=== PATIENT | female | born 1990 | race Caucasian/White ===

== ENCOUNTER 2017-03-13 11:41 | Emergency (ER) | payer MEDICAID, OTHER ==
[~2017-03-13] VITALS: Ht 167.6 cm; Wt 64.9 kg
[~2017-03-13 11:41] MED LIST: CEPH-460 PO; PREN1MIS11 PO
--- NOTE | 2017-03-13 12:27 | PD ---
HPI Chief Complaint low back pain Date Seen: March 13, 2017 Time Seen: 12:14 Travel History International Travel<30 Days: No Contact w/Intl Traveler<30Days: No History of Present Illness HPI 26 y/o at 40/6 presents with lower back pain and cramps. Started yesterday , worsening. Not sure if they feel like contractions or not. Pain comes and goes. No vaginal bleeding, loss of fluids. Endorses movement. Otherwise, denies any other complaints. Denies any chest pain, SOB, leg pain/edema. No dysuria. No headache, changes in vision. No complications with this . Sees [facility]. Para: 1 : 2 History Past Medical History Narrative Medical RLS Obstetric History Obstetric History - at 40 weeks Past Surgical History Surgical History: No Previous Surgery Family History Family History: Negative Social History Alcohol Use: No Tobacco Use: No Substance Abuse: No Allergies-Medications (Allergen,Severity, Reaction): Coded Allergies: No Known Allergies (Unverified , 03/05/17) Home Meds Active Scripts Cephalexin (Keflex)500 Mg [id number] Mg PO Q12H #14 CAP Ref 0 Prov:Aishwarya Jamison CNM EVENT ORGANIZER 03/04/17 Reported Medications W/O Vit A W/ Fe Carbo Pack (Citranatal 90 Dha Pack)90-1 & 300 Mg Pack1 Ea PO DAILY #6 BLISTER Ref 0 30 day supply. 09/24/16 Review of Systems General / Constitutional: Weight Gain, No: Fever, Chills Eyes: No: Diploplia, Blurred Vision HENT: No: Headaches, Lightheadedness Cardiovascular: No: Irregular Rhythm, Chest Pain or Discomfort, Palpitations Respiratory: No: Cough, Short of Breath Gastrointestinal: No: Nausea, Vomiting, Diarrhea Genitourinary: Pelvic Pain, No: Urgency, Frequency, Dysuria, Vaginal Bleeding Musculoskeletal: No: Cramping, Edema Skin: No Rash, No Itching Neurologic: No: Weakness, Dizziness Psychiatric: No: Anxiety, Depression Endocrine: No: Heat Intolerance, Cold Intolerance Physical Exam Narrative GENERAL: Well-nourished, well-developed patient. SKIN: Warm and dry. HEAD: Normocephalic and atraumatic. EYES: No scleral icterus. No injection or drainage. ENT: No nasal drainage noted. Mucous membranes pink. Airway patent. NECK: Supple, trachea midline. No JVD. CARDIOVASCULAR: Regular rate and rhythm without murmurs, gallops, or rubs. RESPIRATORY: Breath sounds equal bilaterally. No accessory muscle use. ABDOMEN/GI: Abdomen soft, non-tender, bowel sounds present, no rebound, no guarding Gravid to 41 weeks size GENITOURINARY: External Genitalia: intact and normal in appearance Cervix: soft Dilatation: 2 Effacement: 40 Station: -3 Presentation: vertex Membranes: intact Uterine Contractions: occasional FHT's: Category: 1 Baseline: 130 Reactive: yes Variability: moderate after stimulation Decels: none EXTREMITIES: No cyanosis or edema. BACK: Nontender without obvious deformity. No CVA tenderness. NEUROLOGICAL: Awake and alert. Motor and sensory grossly within normal limits. Five out of 5 muscle strength in all muscle groups. Normal speech. Data Data Vital Signs Reviewed: Yes [facility] Medical Record Reviewed: Yes Interpretation(s) 26 y/o at 40/6 weeks presents with lower back pain. Cervical exam: 2/40/-3 Category 1 FHT Vitals stable In early stages, but not in active labor - Discharge home - Tylenol PRN for pain - F[facility]u with [facility] - Return to ED if worsening pain with vaginal bleeding, loss of fluids, or more frequent contractions every 5 minutes. Diagnosis Diagnosis: Primary Impression: Abdominal pain affecting , antepartum Additional Impression: 40 weeks gestation of Disposition: 01 DISCHARGE HOME Condition: Stable Patient Instructions: General Instructions, Early Labor Signs (ED) Emanuel Bah MD R1 March 13, 2017 12:27
[2017-03-13] MEDS ORDERED: VIST50CA PO (15:40)
[2017-05-01] MEDS ORDERED: CELE10TA PO (14:11)
[2017-05-01] MEDS ORDERED: LO LTAB PO (14:11)
== END 2017-03-13 12:42 | disposition home or self-care (01) ==
LOC: HOBED 11:41
DX: O26.893 Other specified pregnancy related conditions, third trimester (principal); R10.9 Unspecified abdominal pain; M54.5 Low back pain; Z3A.40 40 weeks gestation of pregnancy
CPT/HCPCS: 99284

== ENCOUNTER 2017-03-14 12:52 | Inpatient (IN) | payer MEDICAID ==
[2017-03-14] VITALS (36 sets, daily range): BP systolic 89–140; BP diastolic 59–97; PULSE 50–127; RESP 18; TEMP 98.4
[~2017-03-14 12:52] MED LIST changes: -CEPH-460 PO; +VIST50CA PO
--- NOTE | 2017-03-14 13:55 | PD ---
HPI Chief Complaint back pain; request for IOL at 41 weeks Date Seen: March 14, 2017 Travel History International Travel<30 Days: No Contact w/Intl Traveler<30Days: No Known Affected Area: No History of Present Illness HPI Ms. Malcolm is a 26 yo patient of [facility] at 41 weeks ([facility]ILMAN 2016) who presents with back pain and abdominal pain. Patient states that she was evaluated for these symptoms and that induction of labor was scheduled for Friday, 03/17, but that she subsequently talked with her OB provider and was told to return to OB ED for further evaluation and possible IOL. He states the cramping on her size occurs approximately every 10 minutes but sometimes more frequently. Patient states that her lower back pain is bilateral and constant. Patient does not report associated dysuria or fever. Patient reports normal movement. Patient reports vaginal spotting after urination. Patient states she had ultrasound performed yesterday; no concerns regarding well- being. Patient reports normal movement. No concern of loss of vaginal fluid. Patient reports benign history. 1st trimester US consistent with LMP. GBS+. Para: 1 : 2 History Past Medical History Medical History: Denies Significant Hx Obstetric History Obstetric History Full term vaginal delivery in 2011 Past Surgical History Surgical History: No Previous Surgery Family History Narrative Family History Mother with back pain Social History Narrative Social History Patient reports ~5 cigarettes daily; reports decreasing consumption since knowing she was Alcohol Use: No Tobacco Use: Yes Substance Abuse: No Allergies-Medications (Allergen,Severity, Reaction): Coded Allergies: No Known Allergies (Unverified , 03/13/17) Home Meds Active Scripts Hydroxyzine Pamoate (Vistaril)50 Mg [id number] Mg PO HS PRN (INSOMNIA) #4 CAP Ref 0 Prov:Aishwarya Jamison CNM DIAGRAM CLERK 03/13/17 Reported Medications W/O Vit A W/ Fe Carbo Pack (Citranatal 90 Dha Pack)90-1 & 300 Mg Pack1 Ea PO DAILY #6 BLISTER Ref 0 30 day supply. 09/24/16 Discontinued Scripts Cephalexin (Keflex)500 Mg [id number] Mg PO Q12H #14 CAP Ref 0 Prov:Aishwarya Jamison CNM DIAGRAM CLERK 03/04/17 Physical Exam BP 107/67 HR 90 Narrative GENERAL: Well-nourished, well-developed patient. SKIN: Warm and dry. HEAD: Normocephalic and atraumatic. EYES: No scleral icterus. No injection or drainage. ENT: No nasal drainage noted. Mucous membranes pink. Airway patent. NECK: Supple, trachea midline. No JVD. CARDIOVASCULAR: Regular rate and rhythm without murmurs, gallops, or rubs. RESPIRATORY: CTAB, normal rate ABDOMEN/GI: Abdomen soft, non-tender, bowel sounds present, no rebound, no guarding Gravid EXTREMITIES: No cyanosis or edema. NEUROLOGICAL: Awake and alert. Motor and sensory function grossly within normal limits. GENITOURINARY: External Genitalia: intact and normal in appearance Cervix: soft Dilatation: 2 Effacement: 50% Station: -3 Presentation: V Membranes: Intact Uterine Contractions: q2 minutes FHT's: Category: 1 Baseline: 130 Reactive: Y Variability: Mod Decels: None Data Data Vital Signs Reviewed: Yes MDM Medical Record Reviewed: Yes Narrative Course / MDM 26 yo patient of [facility] at 41 weeks ([facility]ILMAN 03/07/2017) -Cat 1 rhythm -Cervix 2/40-50%/-3; soft (Carrera score ~4) -Contractions q2-3min -GBS+ Plan: -Plan to admit for induction of labor -Will give Cytotec -Will obtain CBC, UA, Hold Clot -Will start IV F -Will start GBS PPX José Miguel Hill MD R2 March 14, 2017 13:55
[2017-03-14] MEDS ORDERED: LACTATED RINGER'S 1000 ML INJ 1,000 ML IV PRN ×2 (14:32→16:00)
[2017-03-14] MEDS ORDERED: LIDOCAINE HCL 1% 50 ML VIAL I-DERMAL PRN (14:45)
[2017-03-14] MEDS ORDERED: MISOPROSTOL 25 MCG SUPP VAGINAL PRN (14:45)
[2017-03-14] MEDS ORDERED: LIDOCAINE HCL 1% 50 ML VIAL INFIL PRN (14:45)
[2017-03-14] MEDS ORDERED: SODIUM CHLORID 0.9% 500 ML INJ 500 ML IV PRN (14:45)
[2017-03-14] MEDS ORDERED: CITRIC ACID-SODIUM CITRATE LIQ 30 ML UDC PO SCH (14:45)
[2017-03-14] MEDS ORDERED: MINERAL OIL 10 ML VIAL TOPICAL PRN (14:45)
[2017-03-14] MEDS ORDERED: SODIUM CHLOR 0.9% 1000 ML INJ 1,000 ML IV PRN (14:52)
[2017-03-14] MEDS ORDERED: OXYTOCIN 30 UNITS-500ML PREMIX 500 ML IV ONE (15:00)
[2017-03-14] MEDS ORDERED: LACTATED RINGER'S 1000 ML INJ 1,000 ML IV SCH ×2 (15:00→16:00)
[2017-03-14] MEDS ORDERED: MEASLES, MUMPS, RUBELLA VACCINE 0.5 ML VIAL SQ ONE (16:00)
[2017-03-14] MEDS ORDERED: PENICILLIN G POTASSIUM INJ 5,000,000 UNITS in SODIUM CHLORIDE 0.9% INJ 100 ML IV ONE ×2 (16:00→22:00)
[2017-03-14] MEDS ORDERED: DIPHTH/TETANUS/ACEL PERTUSSIS (BOOSTER) 0.5 ML VIAL/PFS IM ONE (16:00)
[2017-03-14 16:45] LABS: AUTOMATED NEUTROPHIL # 6.8 TH/MM3 (1.8-7.7); BASOPHIL % 0.2 % (0.0-2.0); EOSINOPHIL # 0.1 TH/MM3 (0-0.4); EOSINOPHIL % 0.7 % (0.0-4.0); HEMO FLAGS DIFF FINAL; LYMPH % 16.4 % (9.0-44.0); LYMPHOCYTE # 1.5 TH/MM3 (1.0-4.8); MEAN CELL VOLUME 93.7 FL (80.0-100.0); MEAN CORPUSCULAR HEMOGLOBIN 33.2 PG (27.0-34.0); MEAN CORPUSCULAR HGB CONC 35.4 % (32.0-36.0); MONO % 5.9 % (0.0-8.0); NEUT % 76.8 % (16.0-70.0); PLATELET COUNT 201 TH/MM3 (150-450); RED BLOOD COUNT 3.41 MIL/MM3 (4.00-5.30); RED CELL DISTRIBUTION WIDTH 12.9 % (11.6-17.2); WHITE BLOOD COUNT 8.9 TH/MM3 (4.0-11.0)
[2017-03-14 16:58] LABS: BLOOD, URINE MOD (NEG); COMMENT (UR) CULTURE INDICATED; CULTURE IF INDICATED CULTURE INDICATED; GLUCOSE,URINE NEG (NEG); KETONE, URINE NEG (NEG); MUCUS URINE FEW /lpf (OCC); NITRITE,URINE NEG (NEG); PH, URINE 6.5 (5.0-8.5); SQUAMOUS EPITHELIAL CELL URINE 27 /hpf (0-5); URINE COLOR YELLOW (YELLW/STRAW)
[2017-03-14] MEDS ORDERED: PENICILLIN G POTASSIUM INJ 2,500,000 UNITS in SODIUM CHLORIDE 0.9% INJ 100 ML IV SCH (20:00)
--- NOTE | 2017-03-14 20:28 | HHI.PR ---
LINE SERVER Note Note FHR 145, reactive, category 1 tracing, no decelerations Cervix /-2, arom - clear Will start pitocin Otilia Rodriguez MD March 14, 2017 20:27
[2017-03-14] MEDS ORDERED: OXYTOCIN 30 UNITS-500ML PREMIX 500 ML IV SCH (20:30)
[2017-03-14] MEDS ORDERED: fentaNYL 2MCG-BUPIV 0.125% INJ 100 ML ONE (20:57)
[2017-03-14] MEDS ORDERED: ePHEDrine/NS 25 MG/5 ML SYR ONE (21:03)
[2017-03-14] MEDS ORDERED: BUPIVACAINE HCL PF 0.25% 10 ML VIAL ONE (21:03)
[2017-03-14 21:49] LABS: AMPHETAMINE, URINE NEG (NEG); BARBITURATES, URINE NEG (NEG); COCAINE, URINE NEG (NEG)
[2017-03-14] MEDS ORDERED: diphenhydrAMINE HCL 50 MG CAP PO ONE (22:45)
[2017-03-14] MEDS ORDERED: ZOLPIDEM TARTRATE 5 MG TAB PO PRN (23:45)
[2017-03-14] MEDS ORDERED: oxyCODONE/ACETAMINOPHEN 5 MG/325 MG TAB PO PRN ×2 (23:45)
[2017-03-14] MEDS ORDERED: WITCH HAZEL 50%/GLYCERIN 12.5% 40 PAD JAR TOPICAL PRN (23:45)
[2017-03-14] MEDS ORDERED: SODIUM CHLORIDE 0.9% FLUSH 10 ML FLUSH IV FLUSH PRN (23:45)
[2017-03-14] MEDS ORDERED: ONDANSETRON ODT 4 MG TAB PO PRN (23:45)
[2017-03-14] MEDS ORDERED: ALUMINUM/MAGNESIUM/SIMETH 30 ML CUP PO PRN (23:45)
[2017-03-14] MEDS ORDERED: BENZOCAINE 20% TOPICAL SPRAY 60 ML CAN TOPICAL PRN (23:45)
[2017-03-15] VITALS (8 sets, daily range): BP systolic 102–126; BP diastolic 61–81; PULSE 60–76; RESP 16–18; TEMP 98–99.3
--- NOTE | 2017-03-15 | PD.OB.DELI ---
Delivery Date: March 14, 2017 Anesthesia: Epidural Episiotomy: None Vaginal Delivery: Normal Presentation: Occiput anterior Nuchal Cord: x1 (Loose) Delayed cord clamping (45 sec): Yes : Male One Minute : 8 Five Minute : 9 Placenta: Spontaneous delivery Laceration: Vaginal laceration (2 R periurethral small lacerations requiring no repair; hemostasis obtained with pressure) Additional Information Mrs. Malcolm is a G2 now P2 after at 41/0. Patient had epidural anesthesia placed prior to delivery without complications. went without complications as well. There was one loose nuchal cord that was manually reduced. born with APGARs of 8/9 at with spontaneous crying and response to stimulation. Placenta was delivered shortly after spontaneously. There were 2 small R sided periurethral lacerations that did not require repair. Hemostasis was obtained with mild pressure. Baby and mother comfortably resting in room without complaints. SDW: Dr. Rodriguez and Dr. Hill. (Jovan Jefferson MD R1) Collaborating MD Comments over intact perineum, directly supervised by me with spontaneous delivery of intact placenta. (Otilia Rodriguez MD) Jovan Jefferson MD R1 March 14, 2017 23:59 Otilia Rodriguez MD March 15, 2017 01:26
[2017-03-15] MEDS: IBUPROFEN 600 MG TAB PO PRN ×4 (01:25→20:41)
[2017-03-15] MEDS ORDERED: PENICILLIN G POTASSIUM INJ 2,500,000 UNITS in SODIUM CHLORIDE 0.9% INJ 100 ML IV SCH (02:00)
[2017-03-15] MEDS: ACETAMINOPHEN 325 MG TAB PO PRN ×4 (03:44→20:42)
[2017-03-15] MEDS ORDERED: LACTATED RINGER'S 1000 ML INJ 1,000 ML IV PRN (07:00)
[2017-03-15] MEDS ORDERED: LACTATED RINGER'S 1000 ML INJ 1,000 ML IV SCH (07:00)
--- NOTE | 2017-03-15 08:08 | HHI.OB ---
Subjective Post Day: 1 Remarks 26 yo who is PPD 1 ( 5/5 at 2334). Ms. Malcolm was afebrile with stable vital signs overnight. Patient reports that she is ambulating well. Patient does not have significant abdominal pain. Patient with mild dysuria. Patient bottle feeding. Patient passing gas normally. (José Miguel Hill MD R2) Objective Vitals/I&O Vital Signs Date Time Temp Pulse Resp B/P Pulse Ox O2 Delivery O2 Flow Rate FiO2 03/15/17 01:30 99.3 03/15/17 01:30 69 18 123/72 03/15/17 01:15 18 03/15/17 01:15 98.0 03/15/17 01:00 74 126/73 03/15/17 00:46 18 03/15/17 00:45 75 119/81 03/15/17 00:44 98.4 18 03/15/17 00:37 76 102/61 03/14/17 23:15 118/97 03/14/17 23:01 127 99/86 03/14/17 22:45 59 03/14/17 22:45 60 120/77 03/14/17 22:40 66 03/14/17 22:35 57 03/14/17 22:31 60 89/59 03/14/17 22:30 57 03/14/17 22:26 50 127/76 03/14/17 22:25 59 03/14/17 22:20 62 03/14/17 22:15 76 03/14/17 22:11 61 122/64 03/14/17 22:10 64 03/14/17 22:07 56 128/69 03/14/17 22:05 66 03/14/17 22:00 67 132/76 03/14/17 22:00 61 03/14/17 21:55 62 128/73 03/14/17 21:55 65 03/14/17 21:50 62 03/14/17 21:50 61 122/62 03/14/17 21:46 62 123/69 03/14/17 21:45 61 03/14/17 21:40 65 03/14/17 21:40 62 119/67 03/14/17 21:38 63 124/72 03/14/17 21:35 59 03/14/17 21:35 60 129/76 03/14/17 21:32 59 132/74 03/14/17 21:30 66 133/81 03/14/17 21:30 63 03/14/17 21:26 87 130/75 03/14/17 21:25 67 03/14/17 21:20 69 03/14/17 21:20 65 140/91 03/14/17 21:15 71 03/14/17 21:15 69 118/97 03/14/17 21:10 63 03/14/17 21:10 76 131/87 03/14/17 21:07 63 125/78 03/14/17 20:45 112 126/88 03/14/17 20:33 63 125/81 03/14/17 20:30 18 03/14/17 19:30 98.4 18 03/14/17 19:27 65 121/77 Objective Remarks GENERAL: Well-nourished, well-developed patient. CARDIOVASCULAR: Regular rate and rhythm without murmurs, gallops, or rubs. RESPIRATORY: Breath sounds equal bilaterally. No accessory muscle use. ABDOMEN/GI: Abdomen soft, non-tender. Fundus: Firm, non-tender at umbilicus. GENITOURINARY: Light to moderate bleeding. EXTREMITIES: No cyanosis or edema, non-tender, without signs of DVT. Medications and IVs Current Medications Medications (Trade) Dose Ordered Sig/Andres Route Start Time Stop Time Status Last Admin (Benadryl) 50 mg Q6H PO 03/15/17 05:00 (NS Flush) 2 ml BID IV FLUSH 03/15/17 09:00 (NS Flush) 2 ml UNSCH PRN IV FLUSH 03/14/17 23:45 (Tylenol) 650 mg Q4H PRN PO 03/14/17 23:45 03/15/17 03:44 (Motrin) 600 mg Q6H PRN PO 03/14/17 23:45 03/15/17 01:25 (Percocet 5-325 Mg) 1 tab Q4H PRN PO 03/14/17 23:45 (Percocet 5-325 Mg) 2 tab Q4H PRN PO 03/14/17 23:45 (Americaine 20% Top Spr) 1 spray Q4H PRN TOPICAL 03/14/17 23:45 (Tucks Pads) 1 applic QID PRN TOPICAL 03/14/17 23:45 (Shell-Colace) 2 tab Q12H PRN PO 03/14/17 23:45 (Ambien) 5 mg HS PRN PO 03/14/17 23:45 (Mag-Al Plus Susp Liq) 15 ml Q8H PRN PO 03/14/17 23:45 (Zofran Odt) 4 mg Q6H PRN PO 03/14/17 23:45 (Habitrol 7 Mg Patch.24 Hr) 1 patch DAILY T-DERMAL 03/15/17 09:00 Miscellaneous Information 1 DAILY T-DERMAL 03/15/17 09:00 (José Miguel Hill MD R2) Assessment/Plan Problem List: (1) care and examination Assessment and Plan 26 yo who is PPD 1 ( 5/ at 2334) -Continue routine care. -Monitor VS, vaginal bleeding -Percocet and Motrin PRN pain. -Encourage OOB -Encourage breast feeding -Continue stool softener -Will need a f/u appt. in 1 wk for incision check. UA on admission suggestive of possible UTI; will follow culture Discharge Planning -D/c in 1 more day. (José Miguel Hill MD R2) Collaborating MD Comments Care has been reviewed and I agree with management (Otilia Rodriguez MD) José Miguel Hill MD R2 March 15, 2017 08:08 Otilia Rodriguez MD March 15, 2017 09:20
[2017-03-15] MEDS: NICOTINE 7 MG/24 HR PATCH T-DERMAL SCH (08:10)
[2017-03-15] MEDS: REMOVE OLD PATCH T-DERMAL SCH (08:10)
[2017-03-15] MEDS: DOCUSATE SODIUM 50 MG/SENNA 8.6 MG TAB PO PRN ×2 (08:10→20:41)
[2017-03-15] MEDS: SODIUM CHLORIDE 0.9% FLUSH 10 ML FLUSH IV FLUSH SCH ×2 (08:10→21:00)
[2017-03-15] MEDS: diphenhydrAMINE HCL 50 MG CAP PO SCH ×3 (09:31→22:29)
[2017-03-16] MEDS: diphenhydrAMINE HCL 50 MG CAP PO SCH (04:02)
[2017-03-16] MEDS: IBUPROFEN 600 MG TAB PO PRN ×3 (04:06→15:46)
[2017-03-16] MEDS: ACETAMINOPHEN 325 MG TAB PO PRN ×3 (04:06→14:18)
--- NOTE | 2017-03-16 08:49 | HHI.OB ---
Subjective Post Day: 2 Remarks 26 yo who is PPD 2 ( 5/5 at 2334). Ms. Malcolm was afebrile with stable vital signs overnight. Patient does not report significant pain. Patient reports that she is ambulating well. No dysuria reported. No shortness of breath or leg swelling reported. Patient passing gas normally. Patient bottle feeding. Patient would like to be discharged today. Objective Vitals/I&O Vital Signs Date Time Temp Pulse Resp B/P Pulse Ox O2 Delivery O2 Flow Rate FiO2 03/15/17 08:00 98.1 60 16 106/72 Objective Remarks GENERAL: Well-nourished, well-developed patient. CARDIOVASCULAR: Regular rate and rhythm without murmurs. Normal perfusion RESPIRATORY: CTAB, normal rate ABDOMEN/GI: Abdomen soft, non-tender. Fundus: Firm, non-tender at umbilicus. GENITOURINARY: Light to moderate bleeding. EXTREMITIES: No cyanosis or edema, non-tender, without signs of DVT. Medications and IVs Current Medications Medications (Trade) Dose Ordered Sig/Andres Route Start Time Stop Time Status Last Admin (Benadryl) 50 mg Q6H PO 03/15/17 05:00 (NS Flush) 2 ml BID IV FLUSH 03/15/17 09:00 (NS Flush) 2 ml UNSCH PRN IV FLUSH 03/14/17 23:45 (Tylenol) 650 mg Q4H PRN PO 03/14/17 23:45 03/16/17 04:06 (Motrin) 600 mg Q6H PRN PO 03/14/17 23:45 03/16/17 04:06 (Percocet 5-325 Mg) 1 tab Q4H PRN PO 03/14/17 23:45 (Percocet 5-325 Mg) 2 tab Q4H PRN PO 03/14/17 23:45 (Americaine 20% Top Spr) 1 spray Q4H PRN TOPICAL 03/14/17 23:45 (Tucks Pads) 1 applic QID PRN TOPICAL 03/14/17 23:45 (Shell-Colace) 2 tab Q12H PRN PO 03/14/17 23:45 03/15/17 20:41 (Ambien) 5 mg HS PRN PO 03/14/17 23:45 (Mag-Al Plus Susp Liq) 15 ml Q8H PRN PO 03/14/17 23:45 (Zofran Odt) 4 mg Q6H PRN PO 03/14/17 23:45 (Habitrol 7 Mg Patch.24 Hr) 1 patch DAILY T-DERMAL 03/15/17 09:00 03/15/17 08:10 Miscellaneous Information 1 DAILY T-DERMAL 03/15/17 09:00 Assessment/Plan Problem List: (1) care and examination Assessment and Plan 26 yo who is PPD 2 ( 03/14 at 2334) -Continue routine care. -Monitor VS, vaginal bleeding -Percocet and Motrin PRN pain. -Encourage OOB -Encourage breast feeding -Continue stool softener Discharge Planning -D/c in 1 more day. José Miguel Hill MD R2 March 16, 2017 08:49
--- NOTE | 2017-03-16 08:50 | HHI.DCPOC ---
Discharge Care Plan Diagnosis: (1) care and examination Report Symptoms to Your Doctor -Temperate above 100.5 degrees -Redness, of incision or excessive or foul smelling drainage -Unusual pain or calf pain -Increased vaginal bleeding -Painful or difficulty urinating -Feelings of extreme sadness or anxiety after 2 weeks Goals to Promote Your Health * To prevent worsening of your condition and complications * To maintain your health at the optimal level Directions to Meet Your Goals Take your medications as prescribed Follow your dietary instruction Follow activity as directed Ensure plenty of rest for recovery Drink fluids for hydration Keep your appointments as scheduled Take your immunizations and boosters as scheduled If your symptoms worsen call your PCP, if no PCP go to Urgent Care Center or Emergency Room Smoking is Dangerous to Your Health. Avoid second hand smoke Call the 24-hour crisis hotline for domestic abuse at José Miguel Hill MD R2 March 16, 2017 08:50
[2017-03-16] MEDS ORDERED: SENN1TAB PO (08:51)
[2017-03-16] MEDS ORDERED: IBUP-232 PO (08:51)
[2017-03-16] MEDS: SODIUM CHLORIDE 0.9% FLUSH 10 ML FLUSH IV FLUSH SCH (09:00)
[2017-03-16 09:30] VITALS: BP 113/76; PULSE 59; RESP 18; TEMP 98
[2017-03-16] MEDS: NICOTINE 7 MG/24 HR PATCH T-DERMAL SCH (09:36)
[2017-03-16] MEDS: REMOVE OLD PATCH T-DERMAL SCH (09:37)
[2017-03-19 14:32] LABS: BATH SALTS (MDPV) UR NEG (NEG); ECSTASY (MDMA) UR NEG (NEG); GABAPENTIN UR NEG (NEG); HEROIN (6-ACETYLMORPHINE) UR NEG (NEG); K2 SPICE UR NEG (NEG); OBMETHADONE UR NEG (NEG); OXYCODONE (PERCODAN) NEG (NEG); PHENCYCLIDINE URINE NEG (NEG)
[2017-03-19 14:33] LABS: HYDROMORPHONE U NEG (NEG)
[2017-05-01] MEDS ORDERED: LO LTAB PO (14:11)
[2017-05-01] MEDS ORDERED: CELE10TA PO (14:11)
== END 2017-03-16 18:40 | disposition home or self-care (01) | DRG 775 ==
LOC: HOBED 12:52 → H2EB 14:51 → H1EA 03-15 01:33
PROVIDERS: ADMIT Obstetrics & Gynecology Obstetrics; ATTEND Obstetrics & Gynecology Obstetrics
PROC: 10E0XZZ Delivery of Products of Conception, External Approach (ICD-10-PCS; principal; 2017-03-14)
PROC: 3E0P7GC Introduction of Other Therapeutic Substance into Female Reproductive, Via Natural or Artificial Opening (ICD-10-PCS; 2017-03-14)
PROC: 10907ZC Drainage of Amniotic Fluid, Therapeutic from Products of Conception, Via Natural or Artificial Opening (ICD-10-PCS; 2017-03-14)
PROC: 00HU33Z Insertion of Infusion Device into Spinal Canal, Percutaneous Approach (ICD-10-PCS; 2017-03-14)
PROC: 3E0R3CZ (ICD-10-PCS; 2017-03-14)
DX: O48.0 Post-term pregnancy (principal); F17.210 Nicotine dependence, cigarettes, uncomplicated; O99.824 Streptococcus B carrier state complicating childbirth; O99.334 Smoking (tobacco) complicating childbirth; O69.81X0 Labor and delivery complicated by cord around neck, without compression, not applicable or unspecified; O71.82 Other specified trauma to perineum and vulva; Z3A.41 41 weeks gestation of pregnancy; Z37.0 Single live birth
CPT/HCPCS: 59025; 80307; 81001; 85025; 86900; 86901; 87086; 90715; 99284; G0481; J7120; Q0163